=== PATIENT | female | born 1965 | race Caucasian/White ===

== ENCOUNTER → 2017-05-06 12:08 | Outpatient (CLI) | payer BC | END | disposition home or self-care (01) | LOC: D.MRI 12:08 | DX: M25.572 Pain in left ankle and joints of left foot (principal) ==

== ENCOUNTER 2017-05-29 06:15 | Day surgery (SDC) | payer BC ==
[2017-05-27 09:50] LABS: CALC OSMOLALITY 281 mosm/kg (275-300); CALCIUM 8.4 mg/dL (8.5-10.1); CARBON DIOXIDE 29.3 mmol/L (21.0-32.0); CHLORIDE - SERUM 105 mmol/L (98-107); CREATININE - SERUM 0.8 mg/dL (0.6-1.3); GLUCOSE 165 mg/dL (74-106); SODIUM 139 mmol/L (136-145); UREA NITROGEN 12 mg/dL (7-18); eGFR NON AFRICAN AMERICAN 80 mL/min (90-120)
[2017-05-27 10:15] LABS: HEMOGLOBIN 13.9 g/dL (12-16); MCH 30.1 pg (26.0-34.0); MCHC 33.9 g/dL (31.0-37.0); MCV 88.7 fL (80.0-100.0); MEAN PLATELET VOLUME 10.6 fL (7.4-10.4); RBC 4.62 10x6/uL (4.00-5.40); RDW 12.6 % (11.5-14.5); WBC 4.1 10x3/uL (4.8-10.8)
[2017-05-29 08:10] VITALS: BP 135/73; BMI 38.1
[2017-05-29] MEDS ORDERED: MEPERIDINE HCL50 MG PO (11:38)
--- NOTE | 2017-05-29 13:12 | NUR ---
IV DC WITH CATHER TIP INTACT
--- NOTE | 2017-06-02 11:28 | OP ---
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 PROCEDURE: Resection of Anisha's deformity with Achilles tendon repair. SURGEON: Marek Owens MD ANESTHESIA: General. INTRAOPERATIVE COMPLICATIONS: None. SUMMARY OF PATHOLOGIC FINDINGS: The patient had bulbous patulous bony growth in the free tendon nail space, retrocalcaneal space, with substantial tearing of the ACL fibers, also the patient had in the retrocalcaneal space an inflammatory appearing bursa between the tendon and the bone. OPERATIVE SUMMARY IN DETAIL: After obtaining the appropriate preoperative orthopedic surgery consent as well as anesthetic consultation, evaluation and clearance, the patient was brought to the operating room and placed on the operating table in supine position. After general laryngeal mask was administered, the patient was placed in prone position. All pressure points were well padded. A tourniquet was placed about the proximal aspect of left lower extremity. Left lower extremity was then prepped and draped in routine sterile fashion. The leg was elevated and exsanguinated, tourniquet inflated to 350 mmHg. Midline incision was made down the Achilles tendon and just to the edge of the plantar surface. Dissection was carried in about the distal aspect of the Achilles tendon, which was elevated to reveal the findings as noted above. A small sagittal saw was utilized to cut this back to good bleeding bone bed and remove all eburnated surfaces. Wound was then irrigated and then the [employer] Achilles repair kit was utilized to proximal drill and tapped as for the 2 distal drill holes. Proximal SwiveLocks were put into place. The sutures, which were brought through cut-crossed and then secured distally with the 2 distal screws. This resulted in excellent reapproximation of the Achilles tendon. Having completed this, the wound was copiously irrigated and closed with 2-0 Vicryl followed by 4-0 Prolene in running fashion. Sterile dressings were applied. Tourniquet was deflated. L&U splint was applied. The patient was awakened, taken to recovery room in stable condition. All final needle and sponge counts were correct. TRANSINT:[id number] Voice Confirmation ID: [id number] DOCUMENT ID: [id number] OPERATIVE REPORT [id number] NARGIS GODOY MD, MAREK FATIMA at 1128 CC: [id number] DICTATION DATE: 05/29/17 1142 [employer] SUPERVISOR: 05/29/17 1317 [facility] 05/29/17 [place] [id number] [place] [id number]
== END 2017-05-29 13:45 | disposition home or self-care (01) ==
LOC: D.OPS 06:15
PROVIDERS: Anesthesiology
DX: M92.62 Juvenile osteochondrosis of tarsus, left ankle (principal); S86.012A Strain of left Achilles tendon, initial encounter; Z01.812 Encounter for preprocedural laboratory examination

== ENCOUNTER 2017-09-30 13:07 | Emergency (ER) | payer BC ==
[~2017-09-30 13:07] MED LIST: MEPERIDINE HCL50 MG PO
[2017-09-30 15:57] LABS: HEMATOCRIT 43.8 % (36.0-48.0); HEMOGLOBIN 14.9 g/dL (12-16); MCH 30.3 pg (26.0-34.0); MEAN PLATELET VOLUME 10.1 fL (7.4-10.4); RBC 4.92 10x6/uL (4.00-5.40); RDW 12.1 % (11.5-14.5)
[2017-09-30 16:16] LABS: ALBUMIN 3.7 g/dL (3.4-5.0); ANION GAP 9.7 mmol/L (8-16); BILIRUBIN - TOTAL 0.43 mg/dL (0.2-1.3); CALCIUM 8.2 mg/dL (8.5-10.1); CREATININE - SERUM 0.9 mg/dL (0.6-1.3); POTASSIUM - SERUM 3.7 mmol/L (3.5-5.1); PROTEIN - SERUM 7.2 g/dL (6.4-8.2)
[2017-09-30 16:21] LABS: WBC 1.9 10x3/uL (4.8-10.8)
[2017-09-30 16:22] LABS: PLATELET COUNT 131 10x3/uL (130-400)
[2017-09-30 16:59] LABS: EOSINOPHILS 2 % (0-7); LYMPHOCYTES 40 % (15-50); MONOCYTES 3 % (2-11); NEUTROPHILS 55 % (40-80); PLATELET ESTIMATE NORMAL
[2017-09-30 17:16] LABS: APPEARANCE CLEAR (CLEAR); BILIRUBIN NEGATIVE (NEGATIVE); COLOR YELLOW (YELLOW); GLUCOSE 100 mg/dL (NEGATIVE); KETONE NEGATIVE (NEGATIVE); NITRITE NEGATIVE (NEGATIVE); PROTEIN NEGATIVE (NEGATIVE); UROBILINOGEN NORMAL (NORMAL)
== END 2017-09-30 21:32 | disposition home or self-care (01) ==
LOC: D.ER 13:07
PROVIDERS: Emergency Medicine
DX: J11.1 Influenza due to unidentified influenza virus with other respiratory manifestations (principal); R50.9 Fever, unspecified